=== PATIENT | male | born 1950 | race Caucasian/White ===

== ENCOUNTER 2025-04-28 08:55 | Outpatient (OUT) | payer MEDICARE, OTHER, SELFPAY ==
--- OUTSIDE RECORDS SUMMARY | 2025-04-26 09:00 | XMS_ITS | Encounter Summary ---
Author Organization [facility] Address [address] [place] [address] Care Team Providers Care Assembler Deck And Hull Name Role Phone Cesario Rosado DO Unavailable [phone] Chandu Yu MD Primary Care Provider [phone] Reason for Visit * Reason Comments [address] Jeffry burrell stopped Elavil due to nightmares. He states he continues to have nightmares with the new medication Minipress. 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 Hearing loss Father Ronal Mroan Sr. Liver cancer Brother October 2016 Asthma [...] Visit [facility] [address] [facility] [address] [place] [address] documented as of this encounter Visit Diagnoses [...] documented as of this encounter Care Teams Assembler Deck And Hull Relationship Specialty Start Date End Date Cesario Rosado DO [address] [facility] [address] [place] [address] PCP - ACO Reach 01/09/23 Chandu Yu MD [address] [facility] [address] [place] [address] PCP - General Internal Medicine 03/09/25 documented as of this encounter
--- OUTSIDE RECORDS SUMMARY | 2025-04-28 09:00 | XMS_ITS | Encounter Summary ---
Author Organization [facility] Address [address] [facility] [place] [address] Care Team Providers Care Lead Laying And Gluing Machine Operator Name Role Phone Cesario Rosado DO Unavailable [phone] Chandu Yu MD Primary Care Provider [phone] Reason for Visit * Reason Comments Med Refill Encounter Details Date Type Department Care Team (Late st Contact Info) Description 04/25/2025 Refill [facility] [address] [facility] [address] [place] [id number] Cesario Rosado DO [address] [facility] [address] [place] [address] Pure hypercholesterolemia Social History Tobacco Use Types Packs/Day Years Used Date Smoking Tobacco: Former Cigarettes Q uit: 08/18/1994 Passive Smoke Exposure: Past Smokeless Tobacco: Current Snuff Alcohol Use Standard Drinks/Week Comments Yes 0 [...] 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) Not on file Not on file Not on file documented as of this encounter Miscellaneous Notes * Telephone Encounter - Palmira Neville LPN - 04/25/2025 10:35 AM EDT Confirmed dosage and directions with last office note and medication sent documented in this encounter Plan of Treatment Upcoming Encounters Date Type Department Care Team (Late st Contact Info) Description 06/02/2025 9:30 AM EDT Office Visit [facility] [address] [place] [address] documented as of this encounter Visit Diagnoses Diagnosis Pure hypercholesterolemia Pure hypercholesterolemia documented in this encounter Additional Health Concerns Assessment Noted Time PHQ-9 Depression Total Score: 3 01/13/20 24 8:00 AM EDT documented as of this encounter Care Teams Lead Laying And Gluing Machine Operator Relationship Specialty Start Date End Date Cesario Rosado DO [address] [place] [address] PCP - ACO Reach 01/09/23 Chandu Yu MD [address] [place] [address] PCP - General Internal Medicine 03/09/25 documented as of this encounter
--- OUTSIDE RECORDS SUMMARY | 2025-04-28 09:00 | XMS_ITS | Clinical Summary ---
Author Organization [facility] Address [address] [place] [address] Care Team Providers Care Retail Department Supervisor Name Role Phone Cesario Rosado DO Unavailable [phone] Chandu Yu MD Primary Care Provider [phone] Allergies Active Allergy Reactions Criticality Noted Date Comments Tez Inhibitors 05/13/2020 Other Reaction(s): cough, Unknown Other Reaction(s): Cough, Unknown Reaction Lisinopril Other 06/26/2023 Metoprolol Other 06/26/2023 Medications acetaminophen (Tylenol) 325 MG tablet Take by mouth every 4 (four) hours if needed. Active ASPIRIN 81 MG chewable tablet Chew 1 (one) time. Active Multiple Vitamin (MULTIVITAMIN ADULT PO) Daily. Active dutasteride (Avodart) 0.5 MG capsule Take 0.5 mg by mouth 024 2024 Active rosuvastatin (Crestor) 10 MG tabletIndications:Pure hypercholesterolemia TAKE 1 TABLET AT BEDTIME 90 tablet 3 025 Active celecoxib (CeleBREX) 100 MG capsuleIndications:Cerv ical disc disorder with myelopathy, unspecified cervical region 2 tabs every am 180 capsule 1 025 Active tamsulosin (Flomax) 0.4 MG 24 hr capsuleIndications:Osiel gn prostatic hyperplasia, unspecified whether lower urinary tract symptoms present TAKE 1 CAPSULE DAILY 30 MINUTES AFTER THE SAME MEAL EACH DAY 90 capsule 3 025 Active losartan (Cozaar) 50 MG tabletIndications:Pure hypercholesterolemia TAKE 1 TABLET DAILY 90 tablet 3 025 Active traZODone (Desyrel) 50 MG tabletIndications:Night mare disorder,Primary insomnia Take 1 tablet (50 mg) by mouth as needed at bedtime for sleep 30 tablet 2 025 Active losartan (Cozaar) 50 MG tabletIndications:Pure hypercholesterolemia Take 1 tablet (50 mg) by mouth Daily 90 tablet 3 024 2024 Discontinued amitriptyline (Elavil) 10 MG tabletIndications:Corey omnia, unspecified type Take 2 tablets (20 mg) by mouth at bedtime 180 tablet 1 024 2024 Discontinued prazosin (Minipress) 1 MG capsuleIndications:Para somnia, unspecified type 3 tabs every HS 90 capsule 4 025 2024 Discontinued(I neffective) Active Problems Problem Noted Date Diagnosed Date Spondylosis of cervical spine without myelopathy 04/25/2025 Personal history of kidney stones 04/25/2025 Chronic obstructive pulmonary disease 04/25/2025 Anemia 04/25/2025 Prediabetes 04/25/2025 History of migraine headaches 04/25/2025 Primary osteoarthritis involving multiple joints 04/25/2025 Primary insomnia 04/25/2025 Prostate CA 01/18/2025 Parasomnia 01/13/2024 BPPV (benign paroxysmal positional vertigo), rig ht 01/13/2024 Tobacco abuse 07/08/2023 Cervical stenosis of spinal canal 07/08/2023 Essential hypertension 06/30/2023 Benign prostatic hyperplasia without lower urinary tract symptoms 06/30/2023 Bradycardia 06/30/2023 Mixed hyperlipidemia 06/30/2023 Resolved Problems Problem Noted Date Diagnosed Date Resolved Date Elevated PSA 07/20/2024 01/18/2025 Balance disorder 01/16/2024 01/18/2025 Cervicalgia 01/14/2024 01/18/2025 Asymptomatic bilateral carot id artery stenosis 07/08/2023 01/13/2024 Iron deficiency anemia 06/30/202307/08 Encounters Date Type Department Care Team Description 04/26/2025 9:00 AM EDT Office Visit [facility] [address] [place] [id number] Shabbir King, FLO Essential hypertension (Primary Dx); Nightmare disorder; Mixed hyperlipidemia ; Prediabetes; Chronic obstructive pulmonary disease, unspecified COPD type (HCC); Anemia, unspecified type; History of migraine headaches; Primary osteoarthritis involving multiple joints; Prostate CA (HCC); Quit using tobacco in remote past; Primary insomnia 04/26/2025 Travel 04/25/2025 Refill [facility] [address] [place] [phone] Cesario Rosado DO Pure hypercholesterolemia 04/05/2025 Telephone [facility] [address] [place] [phone] Alvaro Rudy, [place] 03/05/2025 Refill [facility] [address] [place] [phone] Cesario Rosado DO Benign prostatic hyperplasia, unspecified whether lower urinary tract symptoms present from Last 3 Months Immunizations Immunization Administration Dates Next Due Influenza, High Dose Seasona l, Preservative Free 05/18/2020,04/25/2017,06/19/2016,06/18 Influenza, seasonal, injecta ble, preservative free 06/08/2015 Influenza, seasonal, intrade rmal, preservative free 06/17/2015 Influenza, trivalent, adjuvanted 06/08/2019,09/2017 Pneumococcal Conjugate PCV 13 12/22/2015 Pneumococcal Polysaccharide PPSV23 12/23/2016 Zoster, live 12/03/2013 Family History Medical History Relation Name Comments Liver cancer Brother October 2016 Hearing loss Father Ronal Moran Sr. Heart disease Father Ronal Moran Sr. Breast cancer Mother Cindy Moran Cancer Mother Cindy Moran Heart disease Mother Cindy Moran Asthma Sibling Cancer Sibling Arthritis Sister 1 Joselin Ronaldo Cancer Sister 1 Joselni Ronaldo Cancer Sister 2 Humaira Tenorio COPD Sister 3 Shirley Thomas No Known Problems Son Relation Name Status Comments Brother Father Ronal Moran Sr. 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 Not on file Not on file Last Filed Vital Signs Vital Sign Reading Time Taken Comments Blood Pressure 120/60 04/26/2025 8:46 AM EDT Pulse 76 04/26/2025 8:46 AM EDT Temperature - - Respiratory Rate - - Oxygen Saturation 96% 04/26/2025 8:46 AM EDT Inhaled Oxygen Concentration - - Weight 93.4 kg (206 lb) 04/26/2025 8:46 AM EDT Height 175.3 cm (5' 9 ) 01/18/2025 9:00 AM EDT Body Mass Index 30.42 01/18/2025 9:00 AM EDT Plan of Treatment Upcoming Encounters Date Type Department Care Team (Late st Contact Info) Description 06/02/2025 9:30 AM EDT Office Visit [facility] [address] [place] [phone] Health Maintenance Due Date Last Done Comments CT Colonography 1950 FIT-DNA 1950 FIT 1950 FOBT 1950 Sigmoidoscopy 1950 Influenza Vaccine (#1) 2025 4, 05/28/2023, 05/26/2022, Additional history exists Medicare Annual Wellness (AWV) 01/18/2026 0 01/18/2025, 01/03/2023, 01/02/2022 Colonoscopy 12/18/2026 12/18/2016 Colorectal Cancer Screening 12/18/2026 Pneumococcal Vaccine: 65+ Years Completed 7, 12/22/2015 Procedures Procedure Name Priority Date/Time Associated Diagnosis Comments LIPID PANEL Routine 04/21/2025 8:07 AM EDT Prostate CA (HCC) Benign essential hypertension Mixed hyperlipidemia COMPREHENSIVE METABOLIC PANEL Routine 04/21/2025 8:07 AM EDT Benign essential hypertension Mixed hyperlipidemia Prostate CA (HCC) COLONOSCOPY Routine 12/18/2016 12:00 PM EDT from Last 3 Months or Most Recently Relevant to Health Maintenance Results * (ABNORMAL) Lipid panel (04/21/2025 8:07 AM EDT) CHOLESTEROL 112(L) 140 - 200 mg/dL 04/21/2025 12:03 PM T [facility] Comment: Chol less than 200 mg/dl low risk Chol 201-239 mg/dl borderline risk Chol 240 mg/dl and greater high risk HDL CHOLESTEROL 40 23 - 92 mg/dL 04/21/2025 12:03 PM EDT [facility] Comment: HDL CHOL ATP-III CLASSIFICATION Cardiovascular Risk HDL > or equal to 60 mg/dL LOW HDL < 40 mg/dL HIGH TRIGLYCERIDE W/REFLEX 120 0 - 149 mg/dL 04/21/2025 12:03 PM EDT [facility] Comment: TRIG ATP III CLASSIFICATION TRIG less than 150 mg/dL Normal TRIG 150-199 mg/dL Borderline high TRIG 200-500 mg/dL High TRIG greater than 500 mg/dL Very high Standard traceable to the Center for Disease Conrtrol and Prevention (CDC) test method. LDL CHOLESTEROL,CALCULA ANGEL 48 0 - 100 mg/dL 04/21/2025 12:03 PM EDT [facility] Comment: LDL ATP III CLASSIFICATION LDL less than 100 mg/dL Optimal LDL 100-129 mg/dL Near or above optimal LDL 130-159 mg/dL Borderline high LDL 160-189 mg/dL High LDL greater than 189 mg/dL Very high VLDL CHOLESTEROL 24 mg/dL 04/21/20 12:03 PM EDT [facility] CHOL/HDL RATIO 2.8 <5.0 [facility] Other Topography unknown / Unknown 04/21/2025 8:07 AM EDT 04/21/2025 8:07 AM EDT Chandu Yu MD LAB BLOOD ORDERABLES Final Resu lt [facility] [address] [place] [address], [facility] [address] [place] [address] * (ABNORMAL) Comprehensive metabolic panel (04/21/2025 8:07 AM EDT) Glucose 100 70 - 100 mg/dL 04/21/2025 12:03 PM [facility] Comment: Random Glucose Reference Range is dependent on time and content of last meal. Glucose of more than 200 mg/dL in a nonstressed, ambulatory subject supports the diagnosis of Diabetes Mellitus. ADA recommended reference range BUN 26(H) 7 - 25 mg/dL 04/21/2025 12:[facility] CREATININE 1.08 0.70 - 1.30 mg/dL 04/21/2025 12:03 PM EDT [facility] ESTIMATED GFR >60.0 04/21/2025 12:03 [facility] Sodium 142 136 - 145 mmol/L 04/[facility] Potassium, Bld 4.4 3.5 - 5.1 mmol/L 04/21/2025 12:03 PM [facility] Chloride 108(H) 98 - 107 mmol/L 04/21/2025 [facility] Carbon Dioxide 30.2 21.0 - 31.0 mmol/L 04/21/2025 12:03 PM EDT [facility] Anion Gap 8.2 6.0 - 15.0 04/21/2025 12:03 PM EDT [facility] Calcium 9.1 8.6 - 10.3 mg/dL 04/21/2025 12:03 PM EDT [facility] TOTAL PROTEIN 6.8 6.4 - 8.9 g/dL 04/21/2025 12:03 PM EDT [facility] ALBUMIN LEVEL 4.3 3.5 - 5.7 g/dL 04/21/2025 12:03 PM EDT [facility] GLOBULIN 2.5 g/dL 04/21/2025 12:03 PM EDT [facility] ALBUMIN/GLOBULIN RATIO 1.7 04/21/2025 12:03 PM EDT [facility] BILIRUBIN,TOTAL 0.6 0.3 - 1.0 mg/dL 04/21/2025 12:03 PM EDT [facility] ASPARTATE AMINO TRANSFERASE 20 13 - 39 U/L 04/21/2025 12:03 PM EDT [facility] ALANINE AMINOTRANSFERASE 19 7 - 52 U/L 04/21/2025 12:03 PM EDT [facility] ALKALINE PHOSPHATASE 52 34 - 104 U/L 04/21/2025 12:03 PM EDT [facility] Other Topography unknown / Unknown 04/21/2025 8:07 AM EDT 04/21/2025 8:07 AM EDT Cesario Rosado DO LAB BLOOD ORDERABLES Final R esult Performing Organization Address [facility] Co de Phone Number [facility] [address] [place] [id number], [facility] [address] [place] [address] * Colonoscopy (12/18/2016 12:00 PM EDT) Anatomical Region Laterality Modality Endoscopy 12/18/2016 12:0 0 PM EDT Narrative 12/18/2016 12:00 PM EDT PERFORMED AT [facility] LOCATION:[id number] Diverticulosis,Hemorrhoids Procedure Note CONVERSION, GENERIC - 01/02/2023 PERFORMED AT [facility] LOCATION:[id number] Diverticulosis,Hemorrhoids Cesario Rosado DO ENDOSCOPY PROCEDURE ORDERABL ES Final Result from Last 3 Months or Most Recently Relevant to Health Maintenance Insurance MEDICARE [facility] [place] Care Teams Retail Department Supervisor Relationship Specialty Start Date End Date Cesario Rosado DO [address] [place] [address] PCP - ACO Reach 01/09/23 Chandu Yu MD [address] [place] [address] PCP - General Internal Medicine 03/09/25
--- OUTSIDE RECORDS SUMMARY | 2025-04-28 09:00 | XMS_ITS | Encounter Summary ---
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 Not on file Not on file documented as of this encounter Functional Status documented as of this encounter Plan of Treatment Upcoming Encounters Date Type Department Care Team ( Contact Info) Description 06/02/2025 9:30 AM EDT Office Visit [facility] [place] [facility] [address] [facility] [address] [place] [address] documented as of this encounter Visit Diagnoses Not on filedocumented in this encounter Additional Health Concerns Assessment Noted Time PHQ-9 Depression Total Score: 3 01/13/20 24 8:00 AM EDT documented as of this encounter Care Teams Coal Loader Relationship Specialty Start Date End Date Cesario Rosado DO [address] [facility] [address] [place] [address] PCP - ACO Reach 01/09/23 Chandu Yu MD [address] [facility] [address] [place] [address] PCP - General Internal Medicine 03/09/25 documented as of this encounter
--- OUTSIDE RECORDS SUMMARY | 2025-04-28 09:00 | XMS_ITS | Clinical Summary ---
Author Organization [facility] Address [address] [facility] [place] [address] Phone Care Team Providers Care Nail Feeder Name Role Phone Unavailable Primary Care Provider Unavailabl e Social History Tobacco Use Types Packs/Day Years Used Date Smoking Tobacco: Never Assessed Sex and Gender Information Value Date Recorded Sex Assigned at Not on file Legal Sex Male 2:25 PM EST Gender Identity Not on file Sexual Orientation Not on file Plan of Treatment Not on file
--- NOTE | 2025-04-28 09:03 | ECG_ITS ---
[facility] Test Date: 2025-04-28 Pat Name: CLAUS TIAN Department: Room: - Gender: Male [employer] Teacher Assistant: : 1950 Requested By: Order Number: [id number] Reading MD: FADIA NATH Measurements Intervals [place] Rate: 51 P: 77 ME: 182 QRS: 54 QRSD: 89 T: 67 QT: 411 QTc: 380 Interpretive Statements SINUS BRADYCARDIA Compared to ECG 05/15/2020 14:59:00 No significant changes Electronically Signed On 04-28-2025 14:07:01 EDT by FADIA NATH
--- NOTE | 2025-04-28 10:00 | XR_ITS ---
[address] [address] Patient Name: CLAUS TIAN MRN: [id number] date: 1950 Sex: M Assigned Patient Location: [facility] Current Patient Location: [facility] Accession/Order Number: [id number] Exam Date: 04/28/2025 10:05 Report Date: 04/28/2025 10:28 At the request of: AVRIL DOBBS MD Procedure: XR chest 2V Chest 2 views CLINICAL HISTORY: Preop exam COMPARISON: None FINDINGS: Heart normal size. Lungs are clear. No free air. XR/XR chest 2V IMPRESSION: NO ACUTE CARDIOPULMONARY ABNORMALITY. Impression dictated by: Otoniel Martinez Jr., D.O. 04/28/2025 10:28 AM Dictation Location: [place] [address] Electronically authenticated by: [id number] Y Date: 04/28/2025 10:28
--- NOTE | 2025-04-28 10:08 | PM.PRESUREVA ---
History of Present Illness History of Present Illness Chief complaint: BPH with Obstruction Narrative: Patient presents for presurgical testing accompanied by his . Please see HPI from Dr. Mccoy dated April 26, 2025. Review of Systems ROS Narrative Please see ROS from Dr. Mccoy dated April 26, 2025. [facility] Medical History (Updated 04/28/25 @ 10:04 by Emily Colindres NP) Insomnia ?G47.00 - Insomnia, unspecified (ICD-10) Prostate cancer ?C61 - Malignant neoplasm of prostate (ICD-10) Back pain ?M54.9 - Dorsalgia, unspecified (ICD-10) Arthritis ?M19.90 - Unspecified osteoarthritis, unspecified site (ICD-10) Low iron ?E61.1 - Iron deficiency (ICD-10) Migraine ?G43.909 - Migraine, unspecified, not intractable, without status migrainosus (ICD-10) Benign prostatic hyperplasia with lower urinary tract symptoms ?N40.1 - Benign prostatic hyperplasia with lower urinary tract symptoms (ICD-10) Kidney stones ?N20.0 - Calculus of kidney (ICD-10) Seasonal allergies ?J30.2 - Other seasonal allergic rhinitis (ICD-10) Cataract ?H26.9 - Unspecified cataract (ICD-10) High cholesterol ?E78.00 - Pure hypercholesterolemia, unspecified (ICD-10) Hypertension ?I10 - Essential (primary) hypertension (ICD-10) Lipoma ?D17.9 - Benign lipomatous neoplasm, unspecified (ICD-10) Surgical History (Updated 04/28/25 @ 09:33 by Emily Colindres NP) H/O exploratory laparotomy ?Z98.890 - Other specified postprocedural states (ICD-10) History of lumbosacral spine surgery ?Z98.890 - Other specified postprocedural states (ICD-10) History of colonoscopy ?Z98.890 - Other specified postprocedural states (ICD-10) History of tonsillectomy ?Z90.89 - Acquired absence of other organs (ICD-10) S/P cataract extraction and insertion of intraocular lens ?Z98.49 - Cataract extraction status, unspecified eye (ICD-10) ?Z96.1 - Presence of intraocular lens (ICD-10) S/P ureteral stent placement ?Z96.0 - Presence of urogenital implants (ICD-10) Hx of prostate biopsy ?Z98.890 - Other specified postprocedural states (ICD-10) S/P cystoscopy ?Z98.890 - Other specified postprocedural states (ICD-10) Family History (Updated 04/28/25 @ 09:33 by Emily Colindres NP) Other Family history of breast cancer Family history of cancer Family history of hypertension Family history of liver cancer Family history of myocardial infarction Family history of stroke Social History (Updated 04/28/25 @ 09:29 by Emily Colindres NP) Within the past year, how often did you have a drink containing alcohol: 2-3 times a week Smoking status: Former smoker Non-prescribed substance use: denies use Highest level of school completed/degree received: some college, no degree Meds Home Medications and Allergies Home Medications ?Medication ?Instructions ?Recorded ?Confirmed ?Type acetaminophen 500 mg tablet 500 mg PO Q6H PRN pain 04/28/25 04/28/25 History (Tylenol Extra Strength) aspirin 81 mg tablet,delayed 81 mg PO DAILY 04/28/25 04/28/25 History release (Adult Aspirin Regimen) celecoxib 100 mg capsule 200 mg PO DAILY 04/28/25 04/28/25 History dutasteride 0.5 mg capsule 0.5 mg PO DAILY 04/28/25 04/28/25 History fluticasone propionate 50 1 spray intranasal DAILY PRN 04/28/25 04/28/25 History mcg/actuation nasal allergy symptoms spray,suspension (24 Hour Allergy Relief) loratadine 10 mg tablet 10 mg PO DAILY 04/28/25 04/28/25 History (Allerclear) losartan 50 mg tablet 50 mg PO DAILY 04/28/25 04/28/25 History multivitamin (Daily Multi-Vitamin 1 tab PO DAILY 04/28/25 04/28/25 History tablet) tamsulosin 0.4 mg capsule 0.4 mg PO Q24H 04/28/25 04/28/25 History trazodone 50 mg tablet 50 mg PO QPM 04/28/25 04/28/25 History Allergies Allergy/AdvReac Type Severity Reaction Status Date / Time lisinopril Allergy Cough Verified 04/28/25 09:23 Exam Narrative Exam Narrative: Constitutional: Awake, alert, comfortable, well-appearing, nontoxic, interactive, vital signs as charted Head: Normocephalic, atraumatic Neck: Supple, normal appearance, normal range of motion, no meningeal signs, no lymphadenopathy Respiratory: No respiratory distress, breath sounds clear Cardiovascular: Regular rate and rhythm, strong and regular heart tones Abdomen: Nontender, normal bowel sounds, soft, no CVA tenderness Musculoskeletal: Normal gait, no swelling or edema Skin: No rashes or induration, no lesions, only visible skin inspected Neuro: No neurological deficits, normal sensation Psychiatric: Oriented ?3, normal affect Assessment and Plan Assessment and Plan (1) Benign prostatic hyperplasia with lower urinary tract symptoms: (2) Prostate cancer: Plan Cystoscopy, TURP scheduled with Dr. Mccoy May 05, 2025.
[2025-04-28 10:33] LABS: Hematocrit 41.3 % (42.0-54.0); Hemoglobin 13.7 g/dL (14.0-18.0); Immature Granulocytes Abs Auto 0.03 10^3/uL (0.00-0.03); Immature Granulocytes Pct Auto 0.5 % (0.0-0.5); Lymphocytes Absolute Auto 1.0 10^3/uL (1.2-3.8); Mean Corpuscular HGB Conc 33.2 g/dL (29.9-35.2); Mean Corpuscular Hemoglobin 28.5 pg (25.9-34.0); Mean Corpuscular Volume 86.0 fL (80.0-94.0); Platelet Count 148 10^3/uL (150-450); Red Blood Count 4.80 10^6/uL (4.70-6.10); White Blood Count 5.5 10^3/uL (4.0-11.0)
[2025-04-28 10:40] LABS: INR 1.05; Partial Thromboplastin Time 30.2 sec (22.3-36.2); Prothrombin Time 11.1 sec (9.0-11.6)
[2025-04-28 11:23] LABS: Anion Gap 11.9; Blood Urea Nitrogen 31.0 mg/dL (7.0-18.0); Calcium 8.9 mg/dL (8.5-10.1); Carbon Dioxide 28.3 mmol/L (21.0-32.0); Chloride 107 mmol/L (98-107); Estimated GFR (African America >60 (>=60 mL/min/1.73m^2); Estimated GFR (Non-African Ame >60 (>=60 mL/min/1.73m^2); Glucose 86 mg/dL (74-106); Potassium 4.2 mmol/L (3.5-5.1); Sodium 143 mmol/L (136-145)
== END 2025-04-28 08:56 | disposition home or self-care (01) ==
PROVIDERS: PCP Internal Medicine; Visit Provider Urology
DX: Z01.810 Encounter for preprocedural cardiovascular examination (principal); Z01.812 Encounter for preprocedural laboratory examination; Z01.818 Encounter for other preprocedural examination; N40.1 Benign prostatic hyperplasia with lower urinary tract symptoms; C61 Malignant neoplasm of prostate
CPT/HCPCS: 71046; 80048; 85025; 85610; 85730; 93005; G0463

== ENCOUNTER 2025-05-05 12:07 | Day surgery (SDC) | payer MEDICARE, OTHER, SELFPAY ==
--- OUTSIDE RECORDS SUMMARY | 2025-04-26 09:00 | XMS_ITS | Encounter Summary ---
Author Organization [facility] Address [address] [place] [address] Care Team Providers Care Linesperson Name Role Phone Cesario Rosado DO Unavailable [phone] Chandu Yu MD Primary Care Provider [phone] Reason for Visit * Reason Comments [address] Jeffry burrell stopped Elavil due to nightmares. He states he continues to have nightmares with the new medication Minipress. Encounter Details Date Type Department Care Team (Latest Contact Info) Description 04/26/2025 9:00 AM EDT Office Visit [facility] [address] [facility] [address] [place] [id number] Shabbir King, QUARTER DOPER [address] [facility] [address] [place] [address] Essential hypertension (Primary Dx); Nightmare disorder; Mixed hyperlipidemia ; Prediabetes; Chronic obstructive pulmonary disease, unspecified COPD type (HCC); Anemia, unspecified type; History of migraine headaches; Primary osteoarthritis involving multiple joints; Prostate CA (HCC); Quit using tobacco in remote past; Primary insomnia Social History Tobacco Use Types Packs/Day Years Used Date Smoking Tobacco: Former Cigarettes Q uit: 08/18/1994 Passive Smoke Exposure: Past Smokeless Tobacco: Former Snuff Tobacco Cessation:Counseling Given: Not Answered Alcohol Use Standard Drinks/Week Comments Yes 0 (1 standard drink = 0.6 oz pur e alcohol) Social AUDIT-C Answer Date Recorded Q1: How often do you have a drink containing alc ohol? 2-4 times a month 04/26/2025 Q2: How many drinks containi ng alcohol do you have on a typical day when you are drinking? 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 male presents with chief complaint of 3 mos ov (Patient states Dr Rosado stopped Elavil due to nightmares. He states he continues to have nightmares with the new medication Minipress. ) HPI: History of Present Illness The patient is a 74-year-old male who presents today for a 3-month follow-up and to discuss nightmares and new medication results. Nightmares and Restlessness He was prescribed Minipress by Dr. Rosado to manage his nightmares, which he has been taking for the past 3 months. Initially, the medication seemed effective, but he continues to experience restlessness. His nightmares, which began 2 to 5 years ago, often involve combative or violent scenarios. Heis unsure if these dreams are linked to a traumatic event. 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 However, his dreams often reflect his experiences from that period. He also dreams about his full-time job, although not consistently. A few months ago, he attempted to share a bed with his partner, but his restlessness made it difficult. On the third or fourth night, he was woken up and decided to return to his own bed. Last night, he jumped out of bed and landed on the nightstand, causing a bruise and breaking his glasses. He is interested in exploring other treatment options for his nightmares. He has tried online hypnosis therapy, which helps him fall asleep but does not alleviate his nightmares. He has not started any new medications recently. He has never been tested for sleep apnea and reports no snoring. He has not been prescribed trazodone before. He has used chewing tobacco for along time but quit 3 to 4 months ago. He has been taking Minipress 3 mg at bedtime for the past 3 months. He has discontinued amitriptyline and increased his Minipress dosage to 3 mg. - Onset: Nightmares began 2 to 5 years ago. - Duration: Persistent for the past 3 months despite medication. - Character: Combative or violent scenarios in dreams; restlessness. - Alleviating/Aggravating Factors: Minipress initially effective; online hypnosis therapy helps with sleep but not nightmares. - Timing: Nightmares occur frequently; restlessness affects sleep quality. - Severity: Severe enough to cause physical injury (jumping out of bed). Prostate Cancer and Urinary Issues He has a history of prostate cancer. A year ago, he consulted Dr. Mccoy due to urinary issues. A blood test revealed a PSA level of 1.4. He was diagnosed with prostate cancer and is currently under medication. His most recent PSA level was 1.5, which Dr. Mccoy considered satisfactory. He has not undergone any seed implants or radiation therapy. He is scheduled for a scope procedure with Dr. Mccoy today. - Onset: Diagnosed a year ago. - Duration: Ongoing management for the past year. - Character: Urinary issues; PSA levels monitored. - Severity: PSA level considered satisfactory by Dr. Mccoy. Shoulder and Neck Problems He has been taking Celebrex 2 tablets in the morning, which has mostly taken care of his shoulder and neck problems. He has not seen Dr. Fernandez in a while. He is a sports medicine doctor. He tried all the scopes and nerve blocks in his neck, which helped with his headaches. He quit having headaches and started taking Celebrex, which made his headaches go away. He has not had a serious headache that would put him down in bed or on the couch for the day since he started taking Celebrex a couple of years ago. - Onset: Shoulder and neck problems managed for a couple of years. - Duration: Persistent but managed with Celebrex. - Character: Shoulder and neck pain; headaches alleviated by Celebrex. - Alleviating/Aggravating Factors: Celebrex effective; scopes and nerve blocks helped with headaches. - Severity: No serious headaches since starting Celebrex. Ringing in the Ears He has ringing in his ears real bad. - Character: Severe ringing in the ears. 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 HISTORIES: PAST MEDICAL HISTORY: Past Medical History: Diagnosis Date Acute nightmare disorder with associated non-sleep disorder, during sleep onset Amblyopia of eye, left OS Anemia Blood donor BPH (benign prostatic hyperplasia) BPPV (benign paroxysmal positional vertigo), right 01/13/2024 Bradycardia 06/30/2023 Cervical stenosis of spinal canal 07/08/2023 Chronic obstructive pulmonary disease (HCC) 04/25/2025 Clotting disorder (HHS-HCC) Eczema Essential hypertension 06/30/2023 History of migraine headaches 04/25/2025 Lumbar disc disease Mixed hyperlipidemia 06/30/2023 Personal history of kidney stones 04/25/2025 Prediabetes 04/25/2025 Primary insomnia 04/25/2025 Primary osteoarthritis involving multiple joints 04/25/2025 Prostate CA (HCC) 01/18/2025 Spondylosis of cervical spine without myelopathy 04/25/2025 Tobacco abuse 07/08/2023 Ventral hernia SURGICAL HISTORY: Past Surgical History: Procedure Laterality Date ABDOMINAL SURGERY s/p esophageal polyp removal BACK SURGERY 2008 L3-4 COLONOSCOPY 2009 MR ANGIOGRAM NECK WO IV CONTRAST 07/01/2023 MR ANGIOGRAM NECK WO IV CONTRAST 07/01/2023 [facility] MR OTHER SURGICAL HISTORY Equivical cardiolyte RADIOFREQUENCY ABLATION 06/2021 on neck US KIDNEY kidney stone SOCIAL HISTORY: Social History Tobacco Use Smoking status: Former Current packs/day: 0.00 Types: Cigarettes Quit date: 08/18/1994 Years since quittin.7 Passive exposure: Past Smokeless tobacco: Former Types: Snuff Substance Use Topics Alcohol use: Yes Comment: Social Drug use: Never Depression: Not at risk (01/18/2025) PHQ-2 PHQ-2 Score: 0 FAMILY HISTORY: Family History Problem Relation Name Age of Onset Heart disease Mother Cindy Moran Breast cancer Mother Cindy Moran Cancer Mother Cindy Moran Heart disease Father Ronal Moran Sr. Hearing loss Father Ronal Moran Sr. Liver cancer Brother October 2016 Asthma Sibling Cancer Sibling No Known Problems Son Arthritis Sister Joselin Higgins Cancer Sister Joselin Higgins Cancer Sister Humaira Tenorio COPD Sister Shirley Thomas MEDICATIONS: Current Outpatient Medications Medication Instructions acetaminophen (Tylenol) 325 MG tablet Every 4 hours PRN ASPIRIN 81 MG chewable tablet Once celecoxib (CeleBREX) 100 MG capsule 2 tabs every am dutasteride (AVODART) 0.5 mg losartan (COZAAR) 50 mg, Oral, Daily Multiple Vitamin (MULTIVITAMIN ADULT PO) Daily prazosin (Minipress) 1 MG capsule 3 tabs every HS rosuvastatin (CRESTOR) 10 mg, Oral, Nightly tamsulosin (Flomax) 0.4 MG 24 hr capsule TAKE 1 CAPSULE DAILY 30 MINUTES AFTER THE SAME MEAL EACH DAY ALLERGIES: Allergies Allergen Reactions Tez Inhibitors Other Reaction(s): cough, Unknown Other Reaction(s): Cough, Unknown Reaction Lisinopril Other Metoprolol Other PHYSICAL EXAM: Visit Vitals BP 120/60 Pulse 76 Wt 206 lb SpO2 96% BMI 30.42 kg/m?? Smoking Status Former BSA 2.13 m?? BP Readings from Last 3 Encounters: 04/26/25 120/60 01/18/25 130/78 07/20/24 130/72 Wt Readings from Last 3 Encounters: 04/26/25 206 lb 01/18/25 208 lb 4.8 oz 07/20/24 207 lb Physical Exam HENT: Head: Normocephalic. Eyes: Extraocular Movements: Extraocular movements intact. Neck: Vascular: No carotid bruit. Cardiovascular: Rate and Rhythm: Regular rhythm. Heart sounds: Normal heart sounds. Pulmonary: Breath sounds: Normal breath sounds. Musculoskeletal: Right lower leg: No edema. Left lower leg: No edema. Skin: General: Skin is warm and dry. Psychiatric: Mood and Affect: Mood normal. Thought Content: Thought content normal. Judgment: Judgment normal. Results Labs - LDL cholesterol: 48 mg/dL - PSA level: 1.5 ng/mL ASSESSMENT AND PLAN: Assessment & Plan 1. Nightmare disorder - traZODone (Desyrel) 50 MG tablet; Take 1 tablet (50 mg) by mouth as needed at bedtime for sleep Dispense: 30 tablet; Refill: 2 - Minipress will be discontinued due to ineffectiveness. - Rosuvastatin will be temporarily stopped for a month to observe any changes in symptoms. - Trazodone 50 mg will be initiated at bedtime, with a 30-day supply provided along with refills. - Explore cognitive behavioral therapy online. 2. Essential hypertension (Primary) -well controlled on cozaar 3. Mixed hyperlipidemia -well controlled on Crestor 4. Prediabetes -glucose 100 5. Chronic obstructive pulmonary disease, unspecified COPD type (HCC) -denies any issues 6. Anemia, unspecified type -will recheck CBC prior to Sep appt 7. History of migraine headaches -denies any migraines lately with taking Celebrex 8. Primary osteoarthritis involving multiple joints - Continue Celebrex 2 tablets in the morning. 9. Prostate CA (HCC) -follows with Dr. Mccoy for this and has appt today -PSA level 1.5. - Continue follow-up with Dr. Mccoy and inquire about the significance of the PSA level and cancerstatus. 10. Quit using tobacco in remote past -was using chewing tobacco, but quit 11. Primary insomnia - traZODone (Desyrel) 50 MG tablet; Take 1 tablet (50 mg) by mouth as needed at bedtime for sleep Dispense: 30 tablet; Refill: 2 Follow-up - A follow-up appointment is scheduled in 6 weeks. Pt is here for follow up of the above chronic problems. I'm following the PCP's established plan ofcare for the above problems. The PCP isn't in the office suite today, but is available via real-time, audio/visual technology to supervise patient care. Previous notes and plan were reviewed and followed. documented in this encounter Plan of Treatment Upcoming Encounters Date Type Department Care Team (Late st Contact Info) Description 06/02/2025 9:30 AM EDT Office Visit [facility] [address] [facility] [address] [place] [address] documented as of this encounter Visit Diagnoses Diagnosis Essential hypertension- Primary Unspecified essential hypertension Nightmare disorder Other dysfunctions of sleep stages or arousal from sleep Mixed hyperlipidemia Mixed hyperlipidemia Prediabetes Other abnormal glucose Chronic obstructive pulmonary disease, unspecified COPD type (HCC) Anemia, unspecified type History of migraine headaches Primary osteoarthritis involving multiple joints Prostate CA (HCC) Malignant neoplasm of prostate Quit using tobacco in remote past Primary insomnia Persistent disorder of initiating or maintaining sleep documented in this encounter Additional Health Concerns Assessment Noted Time PHQ-9 Depression Total Score: 3 01/13/20 24 8:00 AM EDT documented as of this encounter Care Teams Linesperson Relationship Specialty Start Date End Date Cesario Rosado DO [address] [address] [place] [address] PCP - ACO Reach 01/09/23 Chandu Yu MD [address] [facility] [address] [place] [address] PCP - General Internal Medicine 03/09/25 documented as of this encounter
[2025-04-28 09:58] VITALS: BP 148/85; PULSE 53; TEMP 36.3; O2SAT 98; BMI 29.8
[2025-05-05] VITALS (15 sets, daily range): BP systolic 117–151; BP diastolic 76–95; PULSE 52–71; TEMP 36.1–36.8; O2SAT 94–98; BMI 28.9
--- OUTSIDE RECORDS SUMMARY | 2025-05-05 12:09 | XMS_ITS | Encounter Summary ---
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 Not on file Not on file documented as of this encounter Plan of Treatment Upcoming Encounters Date Type Department Care Team (Late st Contact Info) Description 06/02/2025 9:30 AM EDT Office Visit [facility] [place] [facility] [address] [place] [address] documented as of this encounter Procedures Procedure Name Priority Date/Time Associated Diagnosis Comments XR CHEST 2V 04/28/2025 10:28 AM EDT [facility] PROTHROMBIN TIME INR W/O COUM Routine 04/28/2025 10:05 AM EDT [facility] APTT Routine 04/28/2025 10:05 AM EDT ALL CBC WITH AUTO DIFF Routine 04/28/2025 10:05 AM EDT ALL BASIC METABOLIC PANEL Routine 04/28/2025 10:05 AM EDT documented in this encounter Results * XR CHEST 2V (04/28/2025 10:28 AM EDT) Anatomical Region Laterality Modality Other 04/28/2025 10:2 8 AM EDT Narrative 04/28/2025 10:31 AM EDT [address] [address] XRay Report Signed Patient: CLAUS TIAN MR#: [id number] : 1950 Acct:[id number] Age/Sex: 74 / M ADM Date: 04/28/25 Loc: PST Attending Dr: Avril Dobbs M.D. Ordering Physician: Avril Dobbs M.D. Date of Service: 04/28/25 Procedure(s): XR chest 2V Accession Number(s): [id number] cc: EMI MORGAN ; Avril Dobbs M.D. [address] [address] Patient Name: CLAUS TIAN MRN: [id number] date: 1950 Sex: M Assigned Patient Location: [facility] Current Patient Location: [facility] Accession/Order Number: [id number] Exam Date: 04/28/2025 10:05 Report Date: 04/28/2025 10:28 At the request of: AVRIL DOBBS MD Procedure: XR chest 2V Chest 2 views CLINICAL HISTORY: Preop exam COMPARISON: None FINDINGS: Heart normal size. Lungs are clear. No free air. XR/XR chest 2V IMPRESSION: NO ACUTE CARDIOPULMONARY ABNORMALITY. Impression dictated by: Otoniel Martinez Jr., D.O. 04/28/2025 10:28 AM Dictation Location: [place] [address] Electronically authenticated by: [id number] Y Date: 04/28/2025 10:28 Dictated By: Otoniel Martinez M.D. Signed By: 04/28/25 1031 DD/ 1028 TD/TT: Automotive Light Mechanic: Procedure Note Radiology, Radiologist, - 04/28/2025 [place] [address] XRay Report Signed Patient: CLAUS TIAN LMR#: [id number] : 1950cct:[id number] Age/Sex: 74 / MADM Date: 04/28/25 [facility] Dr: Avril Dobbs M.D. Ordering Physician: Avril Dobbs M.D. Date of Service: 04/28/25 Procedure(s): XR chest 2V Accession Number(s): [id number] cc: EMI MORGAN ; Avril Dobbs M.D. The [place] [id number] Patient Name: CLAUS TIAN MRN: [id number] date: 1950 Sex: M Assigned Patient Location: [facility] Current Patient Location: [facility] Accession/Order Number: [id number] Exam Date: 04/28/2025 10:05 Report Date: 04/28/2025 10:28 At the request of: AVRIL DOBBS MD Procedure: XR chest 2V Chest 2 views CLINICAL HISTORY: Preop exam COMPARISON: None FINDINGS: Heart normal size. Lungs are clear. No free air. XR/XR chest 2V IMPRESSION: NO ACUTE CARDIOPULMONARY ABNORMALITY. Impression dictated by: Otoniel Martinez Jr., D.O. 04/28/2025 10:28 AM Dictation Location: [place] [address] Electronically authenticated by: [id number] Y Date: 0:28 Dictated By: Otoniel Martinez M.D. Signed By:04/28/25 1031 DD/ 1028 TD/TT: Automotive Light Mechanic: Generic External Data Provider [facility] Final Result * [facility] APTT (04/28/2025 10:05 AM EDT) PARTIAL THROMBOPLASTIN TIME 30.2 22.3 - 36.2 sec TBH 04/28/2025 10:0 5 AM EDT 04/28/2025 10:08 AM EDT Narrative [facility] - 04/28/2025 11:30 AM EDT Generic External Data Provider [facility] F inal Result Performing Organization Address City/[facility]/ZIP Co de Phone Number [facility] * [facility] PROTHROMBIN TIME INR W/O COUM (04/28/2025 10:05 AM EDT) PROTHROMBIN TIME 11.1 9.0 - 11.6 sec TBH TBH INR 1.05 TBH Comment: DESIRED INR: 2.0-3.0 CONDITIONS NOT LISTED BELOW 2.5-3.5 FOR PROSTHETIC HEART VALVE REPLACEMENT 2.5-3.5 RECURRENT THROMBOSIS 04/28/2025 10:0 5 AM EDT 04/28/2025 10:08 AM EDT Narrative [facility] - 04/28/2025 11:30 AM EDT Generic External Data Provider [facility] F inal Result [facility] * (ABNORMAL) ALL BASIC METABOLIC PANEL (04/28/2025 10:05 AM EDT) SODIUM 143 136 - 145 mmol/L TBH POTASSIUM 4.2 3.5 - 5.1 mmol/L [facility]H CHLORIDE 107 98 - 107 mmol/L TBH CARBON DIOXIDE 28.3 21.0 - 32.0 mmol/L TBH ANION GAP 11.9 TBH GLUCOSE 86 74 - 106 mg/dL TBH BLOOD UREA NITROGEN 31.0(H) 7.0 - 18.0 mg/dL TBH CREATININE 0.99 0.70 - 1.30 mg/dL [facility]H TBH EGFR-AF M[place]AN >60 >=60 mL/min/1.7 3m 2 TBH TBH EGFR-NON AF [place] >60 >=60 mL/min/1.7 3m 2 TBH BUN CREATININE RATIO 31.3 TBH CALCIUM 8.9 8.5 - 10.1 mg/dL [facility] 04/28/2025 10:0 5 AM EDT 04/28/2025 10:08 AM EDT Narrative [facility] - 04/28/2025 11:24 AM EDT us Generic External Data Provider [facility] F inal Result [facility] * (ABNORMAL) ALL CBC WITH AUTO DIFF (04/28/2025 10:05 AM EDT) TB WBC 5.5 4.0 - 11.0 10 3/uL TBH TBH RBC 4.80 4.70 - 6.10 10 6/uL TBH TBH HGB 13.7(L) 14.0 - 18.0 g/dL TBH TB HCT 41.3(L) 42.0 - 54.0 % TBH TBH MCV 86.0 80.0 - 94.0 fL TBH TBH MCH 28.5 25.9 - 34.0 pg TBH TBH MCHC 33.2 29.9 - 35.2 g/dL TBH TBH RDW 13.0 11.0 - 15.0 % TBH TBH PLT 148(L) 150 - 450 10 3/uL TBH TBH MPV 10.2 9.5 - 13.5 fL TBH NEUTROPHILS PERCENT AUTO 66.7 43.0 - 75.0 % TBH LYMPHOCYTES PERCENT AUTO 18.2(L) 20.5 - 60.0 % TBH MONOCYTES PERCENT AUTO 7.5 1.7 - 12.0 % TBH TBH EO % 6.4 0.9 - 7.0 % TBH BASOPHILS PERCENT AUTO 0.7 0.2 - 2.0 % TBH IMMATURE GRANULOCYTES PCT AUTO 0.5 0.0 - 0.5 % TBH NEUTROPHILS ABSOLUTE AUTO 3.7 1.4 - 6.5 10 3/uL TBH LYMPHOCYTES ABSOLUTE AUTO 1.0(L) 1.2 - 3.8 10 3/uL TBH MONOCYTES ABSOLUTE AUTO 0.4 0.3 - 0.8 10 3/uL TBH TBH EO # 0.4 0.0 - 0.7 10 3/uL TBH BASOPHILS ABSOLUTE AUTO 0.0 0.0 - 0.1 10 3/uL TBH IMMATURE GRANULOCYTES ABS AUTO 0.03 0.00 - 0.03 10 3/uL [facility] 04/28/2025 10:0 5 AM EDT 04/28/2025 10:08 AM EDT Narrative [facility] - 04/28/2025 10:43 AM EDT us Generic External Data Provider [facility] F inal Result Performing Organization Address City/State/[facility] Co de Phone Number [facility] documented in this encounter Visit Diagnoses Not on filedocumented in this encounter Additional Health Concerns Assessment Noted Time PHQ-9 Depression Total Score: 3 01/13/20 24 8:00 AM EDT documented as of this encounter Care Teams Forestry Contractor Relationship Specialty Start Date End Date Cesario Rosado DO [address] [facility] [address] [place] [address] PCP - ACO Reach 01/09/23 Emi Morgan MD [address] [place] [address] PCP - General Internal Medicine 03/09/25 documented as of this encounter
--- OUTSIDE RECORDS SUMMARY | 2025-05-05 12:09 | XMS_ITS | Clinical Summary ---
Author Organization [facility] Address [address] [place] [place] [address] Phone Care Team Providers Care Percussion Welding Machine Operator Name Role Phone Unavailable Primary Care Provider [...]
--- OUTSIDE RECORDS SUMMARY | 2025-05-05 12:09 | XMS_ITS | Encounter Summary ---
Author Organization [facility] Address [address] [place] [address] Care Team Providers Care Supervisor Finishing Room Name Role Phone Cesario Rosado DO Unavailable [phone] Chandu Yu MD Primary Care Provider Reason for Visit * Reason Comments Med Refill Encounter Details Date Type Department Care Team (Late st Contact Info) Description 04/25/2025 Refill [facility] [place] [facility] [address] [facility] [address] [place] [phone] Cesario Rosado DO [address] [facility] [address] [place] [address] Pure hypercholesterolemia Social History Tobacco Use Types [...] 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 Not on file [...] Medicine [address] [place] [address] documented as of this encounter Visit Diagnoses Diagnosis Pure hypercholesterolemia Pure hypercholesterolemia documented in this encounter Additional Health Concerns Assessment Noted Time PHQ-9 Depression Total Score: 3 01/13/20 24 8:00 AM EDT documented as of this encounter Care Teams Supervisor Finishing Room Relationship Specialty Start Date End Date Cesario Rosado DO [address] [place] [address] PCP - ACO Reach 01/09/23 Chandu Yu MD [address] [place] [address] PCP - General Internal Medicine 03/09/25 documented as of this encounter
--- OUTSIDE RECORDS SUMMARY | 2025-05-05 12:09 | XMS_ITS | Encounter Summary ---
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 Not on file Not on file documented as of this encounter Plan of Treatment Upcoming Encounters Date Type Department Care Team (Late st Contact Info) Description 06/02/2025 9:30 AM EDT Office Visit [facility] [place] [facility] [address] [place] [phone] documented as of this encounter Procedures Procedure Name Priority Date/Time Associated Diagnosis Comments ECG 12-LEAD 04/28/2025 7:58 AM EDT documented in this encounter Results * ECG 12-LEAD (04/28/2025 7:58 AM EDT) Anatomical Region Laterality Modality Other 04/28/2025 7:58 AM EDT Narrative 04/28/2025 2:07 PM EDT The [address] [address] Electrocardiograph Report Signed Patient: CLAUS TIAN MR#: [id number] : 1950 Acct:[id number] Age/Sex: 74 / M ADM Date: 04/28/25 Loc: PST Attending Dr: Jose G Mccoy M.D. Ordering Physician: Jose G Mccoy M.D. Date of Service: 04/28/25 Procedure(s): ECG 12 lead Accession Number(s): [id number] cc: [facility] Test Date: 2025-04-28 Pat Name: CLAUS TIAN Department: Room: - Gender: Male White Metal Corrosion Proofer: : 1950 Requested By: Order Number: [id number] Reading MD: FADIA PRABHAKAR Measurements Intervals [place] Rate: 51 P: 77 AR: 182 QRS: 54 QRSD: 89 T: 67 QT: 411 QTc: 380 Interpretive Statements SINUS BRADYCARDIA Compared to ECG 05/15/2020 14:59:00 No significant changes Electronically Signed On 04-28-2025 14:07:01 EDT by FADIA PRABHAKAR Dictated By: Fadia Prabhakar M.D. Signed By: 04/28/25 1407 DD/ 0758 TD/TT: Service Porter: Procedure Note Radiology, Radiologist, - 04/28/[address] [address] Electrocardiograph Report Signed Patient: CLAUS TIAN LMR#: [id number] : 1950cct:[id number] Age/Sex: 74 / MADM Date: 04/28/25 Loc: PST Attending Dr: Jose G Mccoy M.D. Ordering Physician: Jose G Mccoy M.D. Date of Service: 04/28/25 Procedure(s): ECG 12 lead Accession Number(s): [id number] cc: [facility] Test Date: 2025-04-28 Pat Name: CLAUS TIAN Department: Room: - Gender: Male White Metal Corrosion Proofer: : 1950 Requested By: Order Number: [id number] Reading MD: FADIA PRABHAKAR Measurements Intervals [place] Rate: 51 P: 77 AR: 182 QRS: 54 QRSD: 89 T: 67 QT: 411 QTc: 380 Interpretive Statements SINUS BRADYCARDIA Compared to ECG 05/15/2020 14:59:00 No significant changes Electronically Signed On 04-28-2025 14:07:01 EDT by FADIA PRABHAKAR Dictated By: Fadia Prabhakar M.D. Signed By:04/28/25 1407 DD/ 0758 TD/TT: Service Porter: Generic External Data Provider [facility] Final Result documented in this encounter Visit Diagnoses Not on filedocumented in this encounter Additional Health Concerns Assessment Noted Time PHQ-9 Depression Total Score: 3 01/13/20 24 8:00 AM EDT documented as of this encounter Care Teams Color Receiver Relationship Specialty Start Date End Date Cesario Rosado DO [address] [place] [address] PCP - ACO Reach 01/09/23 Chandu Yu MD [address] [place] [address] PCP - General Internal Medicine 03/09/25 documented as of this encounter
--- OUTSIDE RECORDS SUMMARY | 2025-05-05 12:09 | XMS_ITS | Encounter Summary ---
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 Not on file Not on file documented as of this encounter Plan of Treatment Upcoming Encounters Date Type Department Care Team (Late st Contact Info) Description 06/02/2025 9:30 AM EDT Office Visit [facility] [place] [facility] [address] [place] [address] documented as of this encounter Procedures Procedure Name Priority Date/Time Associated Diagnosis Comments XR CHEST 2 VIEWS Routine 04/28/2025 11:18 AM EDT documented in this encounter Results * XR chest 2 views (04/28/2025 11:18 AM EDT) Anatomical Region Laterality Modality Chest Radiographic [place] ging us Jose G Mccoy MD IMG XR PROCEDURES Final Resu lt documented in this encounter Visit Diagnoses Not on filedocumented in this encounter Additional Health Concerns Assessment Noted Time PHQ-9 Depression Total Score: 3 01/13/20 24 8:00 AM EDT documented as of this encounter Care Teams Criminal Justice Lawyer Relationship Specialty Start Date End Date Cesario Rosado DO [address] [place] [address] PCP - ACO Reach 01/09/23 Chandu Yu MD [address] [place] [address] PCP - General Internal Medicine 03/09/25 documented as of this encounter
--- OUTSIDE RECORDS SUMMARY | 2025-05-05 12:09 | XMS_ITS | Clinical Summary ---
Author Organization [facility] Address [address] [place] [address] Care Team Providers Care Latrine Cleaner Name Role Phone Cesario Rosado DO Unavailable [phone] Emi Morgan MD Primary Care Provider [phone] Allergies Active Allergy Reactions Criticality Noted Date [...] Encounters Date Type Department Care Team Description 04/28/2025 Clinisync Result Encounter [facility] External Department Unsolicited Provider, Generic External Data 04/28/2025 Orders Only [facility] [place] [facility] [address] [place] [phone] Jose G Dobbs MD 04/28/2025 Clinisync Result Encounter [facility] External Department Unsolicited Provider, Generic External Data 04/26/2025 9:00 AM EDT Office Visit [facility] [address] [place] [phone] Shabbir King NP Essential hypertension (Primary Dx); Nightmare disorder; Mixed hyperlipidemia ; Prediabetes; Chronic obstructive pulmonary disease, unspecified COPD type (HCC); Anemia, unspecified type; History of migraine headaches; Primary osteoarthritis involving multiple joints; Prostate CA (HCC); Quit using tobacco in remote past; Primary insomnia 04/26/2025 Travel 04/25/2025 Refill [facility] [address] [place] [phone] Cesario Rosado DO Pure hypercholesterolemia 04/05/2025 Telephone [facility] [address] [place] [phone] Rudy JohnMINERAL, [place] 03/05/2025 Refill [facility] [address] [place] [phone] Cesario Rosado DO Benign prostatic hyperplasia, unspecified whether lower urinary tract symptoms present from Last 3 Months Immunizations Immunization Administration Dates Next Due Influenza, High Dose Seasona l, Preservative Free 05/18/2020,04/25/2017,06/19/2016,06/18 Influenza, seasonal, injecta ble, preservative free 06/08/2015 Influenza, seasonal, intrade rmal, preservative free 06/17/2015 Influenza, trivalent, adjuvanted 06/08/2019,1009/2017 Pneumococcal Conjugate PCV 13 12/22/2015 Pneumococcal Polysaccharide PPSV23 12/23/2016 Zoster, live 12/03/2013 Family History Medical History Relation Name Comments Liver cancer Brother October 2016 Hearing loss Father Ronal Tian Sr. Heart disease Father Ronal Tian Sr. Breast cancer Mother Cindy Tian Cancer Mother Cindy Tian Heart disease Mother Cindy Tian Asthma Sibling Cancer Sibling Arthritis Sister 1 Joselin Ronaldo Cancer Sister 1 Joselin Ronaldo Cancer Sister 2 Humairadian Tenorio COPD Sister 3 Shirley Thomas No Known Problems Son Relation Name Status Comments Brother Father Ronal Tian Sr. 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 Not on file [...] 06/02/2025 9:30 AM EDT Office Visit [facility] [place] [facility] [address] [place] [address] Health Maintenance Due Date Last Done Comments [...] Comments XR CHEST 2 VIEWS Routine 04/28/2025 11:1 8 AM EDT XR CHEST 2V 04/28/2025 10:28 AM EDT [facility] APTT Routine 04/28/2025 10:05 AM EDT [facility] PROTHROMBIN TIME INR W/O COUM Routine 04/28/2025 10:05 AM EDT ALL BASIC METABOLIC PANEL Routine 04/28/2025 10:05 AM EDT ALL CBC WITH AUTO DIFF Routine 04/28/2025 10:05 AM EDT ECG 12-LEAD 04/28/2025 7:58 AM EDT LIPID PANEL Routine 04/21/2025 8:07 AM EDT Prostate CA (HCC) Benign essential hypertension Mixed hyperlipidemia COMPREHENSIVE METABOLIC PANEL Routine 04/21/2025 8:07 AM EDT Benign essential hypertension Mixed hyperlipidemia Prostate CA (HCC) COLONOSCOPY Routine 12/18/2016 12:00 PM EDT from Last 3 Months or Most Recently Relevant to Health Maintenance Results * XR chest 2 views (04/28/2025 11:18 AM EDT) Anatomical Region Laterality Modality Chest Radiographic Cheyanne ging us Jose G Dobbs MD IMG XR PROCEDURES Final Resu lt * XR CHEST 2V (04/28/2025 10:28 AM EDT) Anatomical Region Laterality Modality Other 04/28/2025 10:2 8 AM EDT Narrative 04/28/2025 10:31 [place] [address] XRay Report Signed Patient: CLAUS TIAN MR#: [id number] : 1950 Acct:[id number] Age/Sex: 74 / M ADM Date: 04/28/25 Loc: [facility] Attending Dr: Jose G Dobbs M.D. Ordering Physician: Jose G Dobbs M.D. Date of Service: 04/28/25 Procedure(s): XR chest 2V Accession Number(s): [id number] cc: EMI MORGAN ; Jose G Dobbs M.D. [place] [id number] Patient Name: CLAUS TIAN MRN: [id number] date: 1950 Sex: M Assigned Patient Location: [facility] Current Patient Location: [facility] Accession/Order Number: [id number] Exam Date: 04/28/2025 10:05 Report Date: 04/28/2025 10:28 At the request of: JOSE G DOBBS MD Procedure: XR chest 2V Chest 2 views CLINICAL HISTORY: Preop exam COMPARISON: None FINDINGS: Heart normal size. Lungs are clear. No free air. XR/XR chest 2V IMPRESSION: NO ACUTE CARDIOPULMONARY ABNORMALITY. Impression dictated by: Santosh Nguyen Jr.OBurt 04/28/2025 10:28 AM Dictation Location: [place] [address] Electronically authenticated by: [id number] Y Date: 04/28/2025 10:28 Dictated By: Otoniel Martinez M.D. Signed By: 04/28/251030 DD/ 1028 TD/TT: Supervisor Fruit Grading: Procedure Note Radiology, Radiologist, - 04/28/2025 [facility] [place] [id number] XRay Report Signed Patient: CLAUS TIAN LMR#: [id number] : 1950cct:[id number] Age/Sex: 74 / MADM Date: 04/28/25 Loc: PST Attending Dr: Jose G Dobbs M.D. Ordering Physician: Jose G Dobbs M.D. Date of Service: 04/28/25 Procedure(s): XR chest 2V Accession Number(s): [id number] cc: EMI MORGAN ; Jose G Dobbs M.D. [facility] [place] [id number] Patient Name: CLAUS TIAN MRN: [id number] date: 1950 Sex: M Assigned Patient Location: [facility] Current Patient Location: [facility] Accession/Order Number: [id number] Exam Date: 04/28/2025 10:05 Report Date: 04/28/2025 10:28 At the request of: JOSE G DOBBS MD Procedure: XR chest 2V Chest 2 views CLINICAL HISTORY: Preop exam COMPARISON: None FINDINGS: Heart normal size. Lungs are clear. No free air. XR/XR chest 2V IMPRESSION: NO ACUTE CARDIOPULMONARY ABNORMALITY. Impression dictated by: Otoniel Martinez Jr., D.O. 04/28/2025 10:28 AM Dictation Location: [place] [address] Electronically authenticated by: [id number] Y Date: 0:28 Dictated By: Otoniel Martinez M.D. Signed By:04/28/251030 DD/ 1028 TD/TT: Supervisor Fruit Grading: us Generic External Data Provider [facility] Final Result * [facility] PROTHROMBIN TIME INR W/O COUM (04/28/2025 10:05 AM EDT) Pathologist [facility] [place] PROTHROMBIN TIME 11.1 9.0 - 11.6 sec TB TB INR 1.05 TB Comment: DESIRED INR: 2.0-3.0 CONDITIONS NOT LISTED BELOW 2.5-3.5 FOR PROSTHETIC HEART VALVE REPLACEMENT 2.5-3.5 RECURRENT THROMBOSIS 04/28/2025 10:0 5 AM EDT 04/28/2025 10:08 AM EDT Narrative [facility] - 04/28/2025 11:30 AM EDT Generic External Data Provider [facility] F inal Result [facility] * [facility] APTT (04/28/2025 10:05 AM EDT) Pathologist [facility] [place] PARTIAL THROMBOPLASTIN TIME 30.2 22.3 - 36.2 sec [facility] 04/28/2025 10:0 5 AM EDT 04/28/2025 10:08 AM EDT Narrative [facility] - 04/28/2025 11:30 AM EDT Generic External Data Provider [facility] F inal Result Performing Organization Address City/[facility]/ZIP Co de Phone Number [facility] * (ABNORMAL) ALL CBC WITH AUTO DIFF (04/28/2025 10:05 AM EDT) Pathologist [facility] TB WBC 5.5 4.0 - 11.0 10 3/uL TBH TBH RBC 4.80 4.70 - 6.10 10 6/uL TBH TBH HGB 13.7(L) 14.0 - 18.0 g/dL TBH TBH HCT 41.3(L) 42.0 - 54.0 % TBH [...] External Data Provider [facility] F inal Result [facility] * (ABNORMAL) ALL BASIC METABOLIC PANEL (04/28/2025 [...] 0.70 - 1.30 mg/dL TBH TBH EGFR-AF SAO TOMEAN >60 >=60 mL/min/1.7 3m 2 TBH TBH EGFR-NON AF SAO TOMEAN >60 >=60 mL/min/1.7 3m 2 TBH BUN CREATININE RATIO 31.3 TBH CALCIUM 8.9 8.5 - 10.1 mg/dL [facility] 04/28/2025 10:0 5 AM EDT 04/28/2025 10:08 AM EDT Narrative [facility] - 04/28/2025 11:24 AM EDT us Generic External Data Provider [facility] F inal Result [facility] * ECG 12-LEAD (04/28/2025 7:58 AM EDT) Anatomical Region Laterality Modality Other 04/28/2025 7:58 AM EDT Narrative 04/28/2025 2:07 [place] [address] Electrocardiograph Report Signed Patient: CLAUS TIAN MR#: [id number] : 1950 Acct:[id number] Age/Sex: 74 / M ADM Date: 04/28/25 Loc: [facility] Attending Dr: Jose G Dobbs M.D. Ordering Physician: Jose G Dobbs M.D. Date of Service: 04/28/25 Procedure(s): ECG 12 lead Accession Number(s): [id number] cc: [facility] Test Date: 2025-04-28 Pat Name: CLAUS TIAN Department: Room: - Gender: Male Coater Hand: : 1950 Requested By: Order Number: [id number] Reading MD: MARION PRABHAKAR Measurements Intervals [place] Rate: 51 P: 77 MO: 182 QRS: 54 QRSD: 89 T: 67 QT: 411 QTc: 380 Interpretive Statements SINUS BRADYCARDIA Compared to ECG 05/15/2020 14:59:00 No significant changes Electronically Signed On 04-28-2025 14:07:01 EDT by MARION PRABHAKAR Dictated By: Marion Prabhakar M.D. Signed By: 09/07/12 1407 DD/ 0758 TD/TT: Supervisor Fruit Grading: Procedure Note Radiology, Radiologist, - 04/28/2025 [facility] [place] [id number] Electrocardiograph Report Signed Patient: CLAUS TIAN LMR#: [id number] : 1950cct:[id number] Age/Sex: 74 / MADM Date: 04/28/25 Loc: PST Attending Dr: Jose G Dobbs M.D. Ordering Physician: Jose G Dobbs M.D. Date of Service: 04/28/25 Procedure(s): ECG 12 lead Accession Number(s): [id number] cc: [facility] Test Date: 2025-04-28 Pat Name: CLAUS TIAN Department: Room: - Gender: Male Coater Hand: : 1950 Requested By: Order Number: [id number] Reading MD: MARION PRABHAKAR Measurements Intervals [place] Rate: 51 P: 77 MO: 182 QRS: 54 QRSD: 89 T: 67 QT: 411 QTc: 380 Interpretive Statements SINUS BRADYCARDIA Compared to ECG 05/15/2020 14:59:00 No significant changes Electronically Signed On 04-28-2025 14:07:01 EDT by MARION PRABHAKAR Dictated By: Marion Prabhakar M.D. Signed By:04/28/25 140 DD/ 0758 TD/TT: Supervisor Fruit Grading: Generic External Data Provider [facility] Final Result * (ABNORMAL) Lipid panel (04/21/2025 8:07 AM EDT) CHOLESTEROL 112(L) 140 - 200 mg/dL 04/21/2025 12:03 PM EDT [facility] Comment: Chol less than 200 mg/dl low risk Chol 201-239 mg/dl borderline risk Chol 240 mg/dl and greater high risk HDL CHOLESTEROL 40 23 - 92 mg/dL 04/21/2025 12:03 PM EDT [facility] Comment: HDL CHOL ATP-III CLASSIFICATION Cardiovascular Risk HDL > or equal to 60 mg/dL LOW HDL < 40 mg/dL HIGH TRIGLYCERIDE W/REFLEX 120 0 - 149 mg/dL 04/21/2025 12:03 PM EDT [facility] Comment: TRIG ATP III CLASSIFICATION TRIG less than 150 mg/dL Normal TRIG 150-199 mg/dL Borderline high TRIG 200-500 mg/dL High TRIG greater than 500 mg/dL Very high Standard traceable to the Center for Disease Conrtrol and Prevention (CDC) test method. LDL CHOLESTEROL,CALCULA ANGEL 48 0 - 100 mg/dL 04/21/2025 12:[address] [facility] Comment: LDL ATP III CLASSIFICATION LDL less than 100 mg/dL Optimal LDL 100-129 mg/dL Near or above optimal LDL 130-159 mg/dL Borderline high LDL 160-189 mg/dL High LDL greater than 189 mg/dL Very high VLDL CHOLESTEROL 24 mg/dL 04/21/20 12:[address] [facility] CHOL/HDL RATIO 2.8 <5.0 04/21/2025 12:[address] [facility] Other Topography unknown / Unknown 04/21/2025 8:07 AM EDT 04/21/2025 8:07 AM EDT us Emi Morgan MD LAB BLOOD ORDERABLES Final Resu lt [facility] [address] [place] [address], [facility] [address] [place] [address] * (ABNORMAL) Comprehensive metabolic panel (04/21/2025 8:07 AM EDT) Glucose 100 70 - 100 mg/dL 04/21/2025 12:[address] [facility] Comment: Random Glucose Reference Range is dependent on time and content of last meal. Glucose of more than 200 mg/dL in a nonstressed, ambulatory subject supports the diagnosis of Diabetes Mellitus. ADA recommended reference range BUN 26(H) 7 - 25 mg/dL 04/21/2025 12:[address] [facility] CREATININE 1.08 0.70 - 1.30 mg/dL 04/21/2025 12:[address] [facility] ESTIMATED GFR >60.0 04/21/2025 12:03 PM EDT [facility] Sodium 142 136 - 145 mmol/L 04/21/2025 12:03 PM EDT [facility] Potassium, Bld 4.4 3.5 - 5.1 mmol/L 04/21/2025 12:03 PM EDT [facility] Chloride 108(H) 98 - 107 mmol/L 04/21/2025 12:03 PM EDT [facility] Carbon Dioxide 30.2 21.0 - 31.0 mmol/L 04/21/2025 12:03 PM EDT [facility] Anion Gap 8.2 6.0 - 15.0 04/21/2025 12:03 PM EDT [facility] Calcium 9.1 8.6 - 10.3 mg/dL 04/21/2025 12:03 PM EDT [facility] TOTAL PROTEIN 6.8 6.4 - 8.9 g/dL 04/21/2025 12:03 PM EDT [facility] ALBUMIN LEVEL 4.3 3.5 - 5.7 g/dL 04/21/2025 12:03 PM EDT [facility] GLOBULIN 2.5 g/dL 04/21/2025 12:03 PM EDT [facility] ALBUMIN/GLOBULIN RATIO 1.7 04/21/2025 12:03 PM EDT [facility] BILIRUBIN,TOTAL 0.6 0.3 - 1.0 mg/dL 04/21/2025 12:03 PM EDT [facility] ASPARTATE AMINO TRANSFERASE 20 13 - 39 U/L 04/21/2025 12:03 PM EDT [facility] ALANINE AMINOTRANSFERASE 19 7 - 52 U/L 04/21/2025 12:03 PM EDT [facility] ALKALINE PHOSPHATASE 52 34 - 104 U/L 04/21/2025 12:03 PM EDT [facility] Other Topography unknown / Unknown 04/21/2025 8:07 AM EDT 04/21/2025 8:07 AM EDT us Cesario Rosado DO LAB BLOOD ORDERABLES Final R esult [facility] [address] [place] [address], [facility] [address] [place] [address] * Colonoscopy (12/18/2016 12:00 PM EDT) Anatomical Region Laterality Modality Endoscopy 12/18/2016 12:0 0 PM EDT Narrative 12/18/2016 12:00 PM EDT PERFORMED AT [facility] LOCATION:[id number] Diverticulosis,Hemorrhoids Procedure Note CONVERSION, GENERIC - 01/02/2023 PERFORMED AT [facility] LOCATION:[id number] Diverticulosis,Hemorrhoids Cesario Rosado DO ENDOSCOPY PROCEDURE ORDERABL ES Final Result from Last 3 Months or Most Recently Relevant to Health Maintenance Insurance [employer] [place] [place] Care Teams Latrine Cleaner Relationship Specialty Start Date End Date Cesario Rosado DO [address] [place] [address] PCP - ACO Reach 01/09/23 Emi Morgan MD [address] [place] [id number] PCP - General Internal Medicine 03/09/25
--- OUTSIDE RECORDS SUMMARY | 2025-05-05 12:09 | XMS_ITS | Encounter Summary ---
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 Not on file Not on file documented as of this encounter Functional Status documented as of this encounter Plan of Treatment Upcoming Encounters Date Type Department Care Team ( Contact Info) Description 06/02/2025 9:30 AM EDT Office Visit [facility] [place] [facility] [address] [facility] [address] [place] [address] documented as of this encounter Visit Diagnoses Not on filedocumented in this encounter Additional Health Concerns Assessment Noted Time PHQ-9 Depression Total Score: 3 01/13/20 24 8:00 AM EDT documented as of this encounter Care Teams Skein Yarn Drier Relationship Specialty Start Date End Date Cesario Rosado DO [address] [facility] [address] [place] [address] PCP - ACO Reach 01/09/23 Chandu Yu MD [address] [facility] [address] [place] [address] PCP - General Internal Medicine 03/09/25 documented as of this encounter
[2025-05-05] MEDS: 0.9 % SODIUM CHLORIDE 1,000 ML 50 ML IV (13:10)
[2025-05-05] MEDS: LEVOFLOXACIN 500 MG/100 ML-D5W PREMIX 100 MG IV (15:51)
--- NOTE | 2025-05-05 15:57 | PC.NURSE ---
1545: UPDATED DR SANCHEZ'S ON THIS PATIENT'S INABILITY TO URINATE. 'S WANTS HIM TO PEE SOANOTHER BAG OF FLUIDS WAS HUNG
--- NOTE | 2025-05-05 17:04 | P.URON_ITS ---
Urology Surgery Operative Note Operative Note Procedure Date: 05/05/25 Time Out Performed: yes Pre-op Diagnosis: 1. BPH with LUTS. 2. Prostate cancer Post-op Diagnosis: same as pre-op Procedures performed: 1. Cystoscopy. 2. Transurethral resection of the prostate. Anesthesia: GETA Primary Surgeon: Jose G Mccoy Complications: None Estimated blood loss (mL): 10 Findings: Trilobar obstruction. Short prostate. Specimens: Prostate chips. Drains: 22 Cameroonian three-way coud? Dumont catheter to traction and CBI Indications for Procedures: This gentleman is in active surveillance for prostate cancer. He has rather significant bladder outlet obstructive symptoms despite oral medications. He is desirous for TURP. He has signed an informed consent for this procedure after risks were explained. Some of these risks include bleeding, infection, anesthesia, urinary incontinence both temporary and permanent, erectile dysfunction, retrograde ejaculation and possible need for further operations to name a few. Detailed description of Procedure: The patient was brought to the operating room and placed on the operating room table in the supine position. SCDs were placed on the lower extremities and turned on and functioning during the entire case. Timeout was done by all parties in the room. We all agreed upon the patient's identification and the planned procedures for this patient. Genn. anesthesia was then administered. The patient was then repositioned into the modified dorsal lithotomy position. All pressure points were satisfactorily padded. Genitalia were sterilely prepped and draped in usual fashion. I started by passing a 26 Cameroonian Olympus resectoscope with a standard bipolar loop electrode per urethra and into the bladder. The prostate revealed trilobar obstruction with a capacious median lobe. The bladder revealed a high-grade bladder damage. The ureteral orifices were marked with a loop electrode. I then uniformly resected the median lobe down to the bladder neck level. I then resected posteriorly from the bladder neck to the Veru. I then resected the right and left lateral lobes in a similar fashion. The anterior tissue was taken down also. The apex was then opened up. The resection bed was coagulated with a loop electrode. The [facility] evacuator was us ed to get all the prostate chips out of the bladder and these were sent for permanent sections. With the scope at the apex the prostatic urethra and bladder neck were now wide open. There was no bleeding. There were no chips remaining in the bladder. The scope was then removed. I then placed a 22 Cameroonian three-way coud? Dumont in the bladder. It was manually irrigated with a Jerome syringe to verify good placement. 30 cc of fluid was placed in the balloon. CBI was started and it irrigated to a pink color. The anesthetic was then reversed. He was then transferred to a [facility] bed and wheeled to PACU in stable condition. Urinary Catheter Management Urinary Catheter Management Coude: Cath placed during this visit: no
[2025-05-05] MEDS: SOLIFENACIN SUCCINATE 10 MG TABLET PO (17:13)
[2025-05-05] MEDS: 0.9 % SODIUM CHLORIDE 1,000 ML 80 ML IV (17:14)
[2025-05-05] MEDS: SODIUM CHLORIDE IRRIG SOLUTION 3,000 ML 3000 ML IRR ×6 (17:59→23:43)
[2025-05-05] MEDS: CEFAZOLIN SODIUM/DEXTROSE,ISO 1 GM/50 ML PREMIX IV (19:59)
[2025-05-05] MEDS: TAMSULOSIN HCL 0.4 MG CAPSULE PO (19:59)
[2025-05-05] MEDS: HYDROCODONE/ACET 5-325 MG TABLET 1 TAB PO (19:59)
[2025-05-05] MEDS: TEMAZEPAM 15 MG CAPSULE PO (23:50)
[2025-05-06] MEDS: SODIUM CHLORIDE IRRIG SOLUTION 3,000 ML 3000 ML IRR ×3 (00:43→02:59)
[2025-05-06] MEDS: CEFAZOLIN SODIUM/DEXTROSE,ISO 1 GM/50 ML PREMIX IV (01:29)
[2025-05-06 03:39] VITALS: BP 150/90; PULSE 53; TEMP 36.7; O2SAT 94
[2025-05-06 07:41] VITALS: BP 140/74; PULSE 59; TEMP 36.5; O2SAT 93
[2025-05-06] MEDS: CETIRIZINE HCL 10 MG TABLET PO (08:57)
[2025-05-06] MEDS: SOLIFENACIN SUCCINATE 10 MG TABLET PO (08:57)
[2025-05-06] MEDS: DUTASTERIDE 0.5 MG CAPSULE PO (08:57)
[2025-05-06] MEDS: ASPIRIN 81 MG TABLET.DR PO (08:57)
[2025-05-06] MEDS: LOSARTAN POTASSIUM 50 MG TABLET PO (08:57)
[2025-05-06] MEDS: CELECOXIB 100 MG CAPSULE 200 MG PO (08:57)
[2025-05-06] MEDS: MULTIVITAMIN TABLET 1 TAB PO (08:57)
== END 2025-05-06 09:52 | disposition home or self-care (01) ==
LOC: SURGOUT 17:00 → MS 17:40
PROVIDERS: PCP Internal Medicine; Visit Provider Urology
PROC: (CPT 52601; principal; 2025-05-05 13:35)
DX: N40.1 Benign prostatic hyperplasia with lower urinary tract symptoms (principal); C61 Malignant neoplasm of prostate; I10 Essential (primary) hypertension; E78.00 Pure hypercholesterolemia, unspecified; Z87.442 Personal history of urinary calculi; Z87.891 Personal history of nicotine dependence; E78.5 Hyperlipidemia, unspecified
CPT/HCPCS: 52601; 36415; 96365; J0690; J2250; J2405; J2704; J3010